=== PATIENT | male | born 1955 ===

== ENCOUNTER → 2021-03-13 | Day surgery (SDC) | payer OTHER ==
[~2021-03-13] MED LIST: COLACE100 MG PO; NEURONTIN300 MG PO; OMEPRAZOLE-BIC1 EAC1 PO; PERCOCET 5-3251 EACH PO; ZESTRIL10 M1 PO
== END | disposition home or self-care (01) ==
LOC: ADM 03-06 12:00 → AMB-ENDOS 07:01
PROVIDERS: ATTEND Surgery
DX: K62.89 Other specified diseases of anus and rectum (principal); K64.1 Second degree hemorrhoids; Z20.822 Contact with and (suspected) exposure to COVID-19

== ENCOUNTER 2021-03-17 05:40 | Day surgery (SDC) | payer OTHER ==
[~2021-03-17 05:40] MED LIST changes: -COLACE100 MG PO; -NEURONTIN300 MG PO; -PERCOCET 5-3251 EACH PO
[2021-03-17] MEDS ORDERED: COLACE100 MG PO (08:42)
[2021-03-17] MEDS ORDERED: PERCOCET 5-3251 EACH PO (08:42)
[2021-03-17] MEDS ORDERED: NEURONTIN300 MG PO (09:23)
== END 2021-03-17 16:30 | disposition home or self-care (01) ==
LOC: CIR.AMB 05:40 → SURH 13:34 → EDSTATUS 14:20 → CIR.AMB 14:22
PROVIDERS: ATTEND Surgery
DX: K64.8 Other hemorrhoids (principal); Z20.822 Contact with and (suspected) exposure to COVID-19